=== PATIENT | male | born 1990 | race Caucasian/White ===

== ENCOUNTER 2017-07-03 01:18 | Emergency (ER) | payer SELFPAY ==
[~2017-07-03] VITALS: Ht 188 cm; Wt 104.3 kg
[2017-07-03] MEDS ORDERED: LIDOCAINE 2% 20 ML (XYLOCAINE) VIAL ONE (01:23)
[2017-07-03] MEDS ORDERED: BACTRIM (01:34)
[2017-07-03] MEDS ORDERED: LIDOCAINE 2% 20 ML (XYLOCAINE) VIAL INJ ONE (01:45)
[2017-07-03] MEDS ORDERED: SULF1TAB35 PO (01:56)
--- NOTE | 2017-07-03 01:57 | ED Integumentary General ---
General Chief Complaint: Skin/Wound Problems Stated Complaint: SWOLLEN KNOT ON THROAT Nursing Triage Note: PT TO ED 6 W/ C/O ABSCESS TO LT SIDE OF NECK ONSET X1 WK. REPORTS HE WAS SEEN BY [facility] X2 DAYS AGO ET PRESCRIBED BACTRIM BUT DENIES IMPROVEMENT. REPORTS SITE IS "WORSE" SINCE TREATMENT. NO OTHER C/O VOICED Source: patient History of Present Illness Time seen by provider: 01:24 Initial Comments PT STATES HE HAS HAD ABSCESS TO LEFT NECK X 1 WEEK STARTED OUT A PIMPLE AND GIRLFRIEND HAS BEEN SQUEEZING AND POKING IT AND HAS CONTINUED TO GET BIGGER AND MORE PAINFUL SEEN AT [facility] BY SOLDERER FURNACE YOUNG STRONG ON Thursday07/01/17 AND GIVEN RX FOR BACTRIM, DID NOT ATTEMPT TO DO I&D--STATES IS GETTING WORSE NO DRAINAGE NO FEVER NO DIFFICULTY SWALLOWING HAS NOT TAKEN ANYTHING FOR PAIN NO PRIOR HISTORY OF SIMILAR , BUT GIRLFRIEND HAS HAD ABSCESSES BEFORE PCP [facility] Allergies and Home Medications Allergies Coded Allergies: No Known Allergies (Unverified Allergy, Mild, 02/24/10) Home Medications Sulfamethoxazole/Trimethoprim 1 Each Tablet, 2 EACH PO BID, #20 Prescribed by: MANUELA MORENO on 07/03/17 0156 [Bactrim] , (Reported) Constitutional: no symptoms reported EENTM: see HPI Respiratory: no symptoms reported Cardiovascular: no symptoms reported Skin: see HPI Psychiatric/Neurological: No Symptoms Reported Past Eatfigg-Mktyjw-Bddyme Hx Patient Social History Alcohol Use: Denies Use Recreational Drug Use: No Smoking Status: Current Everyday Smoker (1/2-1 PPD) Type Used: Cigarettes Recent Foreign Travel: No Contact w/Someone Who Travel: No Recent Infectious Disease Expo: No Surgeries HX Surgeries: Yes (TOE SURGERY) Respiratory Hx Respiratory Disorders: No Cardiovascular Hx Cardiac Disorders: No Neurological Hx Neurological Disorders: No Genitourinary Hx Genitourinary Disorders: No Gastrointestinal Hx Gastrointestinal Disorders: No Musculoskeletal Hx Musculoskeletal Disorders: No Endocrine Hx Endocrine Disorders: No HEENT HX ENT Disorders: No Cancer Hx Cancer: No Psychosocial Hx Psychiatric Problems: No Integumentary HX Skin/Integumentary Disorder: No Blood Transfusions Hx Blood Disorders: No Physical Exam Vital Signs Vital Sign - Last 12Hours 07/03/17 01:23 Temp 98.8 Pulse 103 Resp 20 B/P (MAP) 146/87 O2 Delivery Room Air Capillary Refill : Less Than 3 Seconds General Appearance: WD/WN, no apparent distress HEENT: normal ENT inspection Neck: other (5 CM POINTING ABSCESS TO LEFT NECK. ) Cardiovascular: regular rate, rhythm Respiratory: normal breath sounds Neurologic/Psychiatric: club director II-XII nml as tested, no motor/sensory deficits, alert, oriented x 3 Skin: normal color, warm/dry, other ( ABOVE) I&D : Site: LEFT NECK Blade Size: 11 I & D Procedure: betadine prep, sterile drapes applied, sterile dressing applied, gauze wick placed, Wound Packing Packing/Drain: Idoform 1/4 Progress AREA CLEANSED WITH BETADINE AND BETASEPT STERILE DRAPES APPLIED INJECTED WITH 2% LIDOCAINE PLAIN INCISED WITH #11 BLADE PROFUSE AMOUNTS OF PURULENT DRAINAGE EXPELLED CULTURE OBTAINED PROBED TO BREAK UP LOCULATIONS PACKED WITH 1/4" IODOFORM GAUZE STERILE DRESSING APPLIED PT TOLERATED WELL. Progress/Results/Core Measures Results/Orders My Orders Orders - MANUELA MORENO DO Lidocaine 2% Injection 20 Ml (Xylocaine (07/03/17 01:23) Lidocaine 2% Injection 20 Ml (Xylocaine (07/03/17 01:45) Clindamycin Injection (Cleocin Injection (07/03/17 02:00) Wound Culture (07/03/17 01:52) Medications Given in ED Current Medications Medications Dose Ordered Sig/Brandon Route Start Time Stop Time Status Last Admin Dose Admin Clindamycin Phosphate 600 mg ONCE ONCE IM 07/03/17 02:00 07/03/17 02:01 DC 07/03/17 02:03 600 MG Lidocaine HCl 20 ml ONCE ONCE INJ 07/03/17 01:45 07/03/17 01:47 DC 07/03/17 01:34 20 ML Vital Signs/I&O Vital Sign - Last 12Hours 07/03/17 01:23 Temp 98.8 Pulse 103 Resp 20 B/P (MAP) 146/87 O2 Delivery Room Air Blood Pressure Mean: 106 Departure Impression Impression: Primary Impression: abscess left neck Additional Impression: suspected MRSA Disposition: HOME, SELF-CARE Condition: Stable Departure-Patient Inst. Referrals: NO,LOCAL PHYSICIAN (PCP) Primary Care Physician [facility] Patient Instructions: Abscess Incision and Drainage (DC), MRSA (DC) Add. Discharge Instructions: LEAVE DRESSING IN PLACE, AND DO NOT REMOVE PACKING TYLENOL AND MOTRIN NEEDED FOR PAIN DOUBLE YOUR DOSE OF BACTRIM TO 2 PILLS TWICE A DAY FOLLOW UP WITH [facility] IN 2 DAYS FOR FURTHER CARE All discharge instructions reviewed with patient and/or family. Voiced understanding. Scripts Sulfamethoxazole/Trimethoprim (Bactrim Ds Tablet) 1 Each Tablet 2 EACH PO BID, #20 TAB Prov: MANUELA MORENO DO 07/03/17 Work/School Note: Work Release Form Date Seen in the Emergency Department: Jul 03, 2017 Return to Work: Jul 05, 2017 MANUELA MORENO DO Jul 03, 2017 01:57
[2017-07-03] MEDS ORDERED: CLINDAMYCIN 600 MG/4ML (CLEOCIN) VIAL IM ONE (02:00)
[2017-07-03 02:27] VITALS: BP 124/78
== END 2017-07-03 02:27 | disposition home or self-care (01) ==
LOC: EDUNIT# 01:18 → ER 01:22
DX: L02.11 Cutaneous abscess of neck (principal); F17.210 Nicotine dependence, cigarettes, uncomplicated
CPT/HCPCS: 87070; 87186; 87205; 99284

== ENCOUNTER 2017-10-07 00:01 | Emergency (ER) | payer SELFPAY ==
[~2017-10-07] VITALS: Ht 185.4 cm; Wt 105.2 kg
[~2017-10-07 00:01] MED LIST: BACTRIM; SULF1TAB35 PO
[2017-10-07] MEDS ORDERED: SULF1TAB35 PO (00:44)
[2017-10-07] MEDS ORDERED: LIDOCAINE 1% INJ 20 ML (XYLOCAINE) VIAL INJ ONE (00:45)
--- NOTE | 2017-10-07 00:45 | ED Integumentary General ---
General Chief Complaint: Skin/Wound Problems Stated Complaint: ABSCESS ON FACE Nursing Triage Note: PT TO ED 8 W/ C/O POSS ABSCESS ONSET X2-3WKS. AREA SLIGHTLY RED, CENTER APPEARS TO BE SCABBED OVER. Source: patient, other Exam Limitations: no limitations History of Present Illness Time seen by provider: 00:35 Initial Comments Patient has ER by private conveyance with chief complaint that for the past 3 weeks she's had a nodule on the right side of his neck that he thought was an ingrown hair that has been slowly growing. He is having pain, small amount of caseous thick drainage this evening but no fevers, chills or rash. He had one on the other side of his neck a few months ago that had to be drained in the ER. He still smokes a pack a day. No other history of surgery to his neck or head. He's having some pain around his right ear but no trouble hearing. He does have a toothache is been going on for several months but is not related to this pain he says. Allergies and Home Medications Allergies Coded Allergies: No Known Allergies (Unverified Allergy, Mild, 02/24/10) Home Medications Sulfamethoxazole/Trimethoprim 1 Each Tablet, 2 EACH PO BID, #20 Prescribed by: MANUELA MORENO on 07/03/17 0156 Sulfamethoxazole/Trimethoprim 1 Each Tablet, 1 EACH PO BID for 5 Days, #10 Ref 0 Prescribed by: VERITO HASTINGS on 10/07/17 0044 [Bactrim] , (Reported) Constitutional: No chills, No fever, No malaise EENTM: ear pain (right), No ear discharge, No hearing loss Respiratory: No cough, No short of breath Cardiovascular: No chest pain, No Hx of Intervention, No vascular heart diseas Gastrointestinal: No diarrhea, No nausea Skin: see HPI, No pruritus, No rash Past Iegsnvn-Xdtuwu-Zempab Hx Patient Social History Alcohol Use: Denies Use Recreational Drug Use: No Smoking Status: Current Everyday Smoker Type Used: Cigarettes Recent Foreign Travel: No Contact w/Someone Who Travel: No Recent Infectious Disease Expo: No Recent Hopitalizations: No Physical Abuse: No Sexual Abuse: No Mistreated: No Fear: No Surgeries History of Surgeries: No Respiratory History of Respiratory Disorde: No Cardiovascular History of Cardiac Disorders: No Neurological History of Neurological Disord: No Gastrointestinal History of Gastrointestinal Di: No Musculoskeletal History of Musculoskeletal Dis: No Endocrine History of Endocrine Disorders: No Cancer History of Cancer: No Psychosocial History of Psychiatric Problem: No Suicide Risk Score: 0 Integumentary History of Skin or Integumenta: No Blood Transfusions History of Blood Disorders: No Physical Exam Vital Signs Vital Sign - Last 12Hours 10/07/17 00:19 Temp 98.7 Pulse 88 Resp 20 B/P (MAP) 140/76 Pulse Ox 97 O2 Delivery Room Air Capillary Refill : Less Than 3 Seconds General Appearance: WD/WN, no apparent distress HEENT: PERRL/EOMI, pharynx normal, TM abnormal (R) (mild erythema without bulging or mucoid effusion.) Neck: non-tender, full range of motion, other (small palpable nodule with mild amount of fluctuance under it on the right anterior neck just below the angle of the jaw. 2 cm x 1 cm.) Cardiovascular: normal peripheral pulses, regular rate, rhythm Respiratory: no respiratory distress, no accessory muscle use Neurologic/Psychiatric: alert, oriented x 3 Skin: other (2 x 1 cm ovoid nodule with small amount of urine drainage in the morejon line at the angle of the right jaw.) I&D : Site: right neck at the angle of the jaw Blade Size: 11 I & D Procedure: betadine prep (chlorhexidine) Progress Patient was infiltrated with 2 cc of 1% lidocaine without epinephrine and a ring block fashion and when he was ascertained to be numb a 11 blade scalpel was used in a cross jones fashion to open up the ingrown hair and abscess area. A small amount 1-2 cc of thick caseous debris was expectorated and the wound was probed with a sterile Q-tip to break up any loculations. The patient tolerated the procedure very well. Progress/Results/Core Measures Results/Orders My Orders Orders - VERITO HASTINGS Lidocaine 1% Injection (Xylocaine 1% Inj (10/07/17 00:45) Medications Given in ED Current Medications Medications Dose Ordered Sig/Brandon Route Start Time Stop Time Status Last Admin Dose Admin Lidocaine HCl 20 ml ONCE ONCE INJ 10/07/17 00:45 10/07/17 00:46 DC 10/07/17 00:50 20 ML Vital Signs/I&O Vital Sign - Last 12Hours 10/07/17 00:19 Temp 98.7 Pulse 88 Resp 20 B/P (MAP) 140/76 Pulse Ox 97 O2 Delivery Room Air Blood Pressure Mean: 97 Departure Impression Impression: Primary Impression: Ingrown hair Disposition: HOME, SELF-CARE Condition: Improved Departure-Patient Inst. Decision time for Depature: 01:24 Referrals: NO,LOCAL PHYSICIAN (PCP/Family) Primary Care Physician Patient Instructions: Wound Incision and Drainage (DC) Add. Discharge Instructions: Keep the area clean with soap and water twice a day and a loose dressing. Take the antibiotics to completion one tablet twice a day. All discharge instructions reviewed with patient and/or family. Voiced understanding. Scripts Sulfamethoxazole/Trimethoprim (Bactrim Ds Tablet) 1 Each Tablet 1 EACH PO BID for 5 Days, #10 TAB 0 Refills Prov: VERITO HASTINGS 10/07/17 Copy Copies To 1: CHUCK HOPKINS TITUS J Oct 07, 2017 00:44
[2017-10-07 01:26] VITALS: BP 131/72
== END 2017-10-07 01:26 | disposition home or self-care (01) ==
LOC: EDUNIT# 00:01 → ER 00:04
DX: L73.1 Pseudofolliculitis barbae (principal); F17.210 Nicotine dependence, cigarettes, uncomplicated

== ENCOUNTER 2017-11-01 19:54 | Emergency (ER) | payer SELFPAY ==
[~2017-11-01] VITALS: Ht 185.4 cm; Wt 106.6 kg
[2017-11-01] MEDS ORDERED: RX-ONDANSETRON 4 MG ODT (ZOFRAN) PPK #4 PO STA (21:04)
[2017-11-01] MEDS ORDERED: ONDA4TAB11 PO (21:10)
--- NOTE | 2017-11-01 21:10 | ED GI ---
General Chief Complaint: Abdominal/GI Problems Stated Complaint: NOT KEEPING FOOD DOWN Nursing Triage Note: N/V/D X3 DAYS Sepsis Screen: No Definite Risk Source of Information: Patient Exam Limitations: No Limitations History of Present Illness Time Seen By Provider: 20:59 Initial Comments 4 days ago night this started with some nausea and loose stools. Thursday has nausea and got more severe where he was vomiting nonbloody food particles and anything that he drank. His diarrhea was loose watery without blood in it. He took some Imodium but Throwing it up. He missed work Thursday and Thursday and tonight he feels this is been going on for 4 days he had to be seen. He's had no fevers, chills, cough, chest pain, shortness of breath, rash, history of surgeries to the abdomen, history of trauma. No sick contacts or recent travel, camping or drinking from unsafe water sources. His diarrhea still has water in it and is not responding much to the Pepto or Imodium. He thinks is because his been throwing it up shortly after taking it. No history of irritable bowel or inflammatory bowel disease. He says Thursday, 3 days ago he passed a kidney stone. He has a history of kidney stones he is no longer having any hematuria, dysuria or discharge. No flank pain. Allergies and Home Medications Allergies Coded Allergies: No Known Allergies (Unverified Allergy, Mild, 02/24/10) Home Medications No Active Prescriptions or Reported Meds Review of Systems Constitutional: No chills, No fever, No malaise Respiratory: Denies Cough, Denies Shortness of Air Cardiovascular: Denies Chest Pain, Denies Palpitations, Denies Syncope Gastrointestinal: Denies Abdomen Distended, Denies Abdominal Pain, Denies Blood Streaked Stools, Denies Constipated, Diarrhea, Denies Difficulty Swallowing, Nausea, Poor Fluid Intake, Denies Rectal Bleeding, Vomiting Genitourinary: Denies Burning, Denies Discharge Musculoskeletal: No back pain, No joint pain Past Nxyvlac-Onlhjh-Ytykcq Hx Patient Social History Alcohol Use: Denies Use Recreational Drug Use: No Smoking Status: Current Everyday Smoker Type Used: Cigarettes Recent Foreign Travel: No Contact w/Someone Who Travel: No Recent Infectious Disease Expo: No Recent Hopitalizations: No Immunizations Up To Date Tetanus Booster (TDap): Unknown Seasonal Allergies Seasonal Allergies: No Surgeries History of Surgeries: No Respiratory History of Respiratory Disorde: No Cardiovascular History of Cardiac Disorders: No Neurological History of Neurological Disord: No Genitourinary History of Genitourinary Disor: No Gastrointestinal History of Gastrointestinal Di: No Musculoskeletal History of Musculoskeletal Dis: No Endocrine History of Endocrine Disorders: No HEENT History of HEENT Disorders: No Cancer History of Cancer: No Psychosocial History of Psychiatric Problem: No Integumentary History of Skin or Integumenta: No Blood Transfusions History of Blood Disorders: No Physical Exam Vital Signs VS - Last 72 Hours, by Label 11/01/17 20:49 Temp 97.3 Pulse 70 Resp 16 B/P (MAP) 122/72 (89) Pulse Ox 99 O2 Delivery Room Air Capillary Refill : Less Than 3 Seconds General Appearance: WD/WN, no apparent distress HEENT: PERRL/EOMI, pharynx normal (oral mucosa is moist) Neck: non-tender, normal inspection Respiratory: chest non-tender, lungs clear, normal breath sounds Cardiovascular: normal peripheral pulses, regular rate, rhythm, no edema Peripheral Pulses: 2+ Dorsalis Pedis (R), 2+ Left Dors-Pedis (L) Gastrointestinal: normal bowel sounds, non tender, soft, no organomegaly, no pulsatile mass, No mass Extremities: normal range of motion, non-tender, normal inspection, no pedal edema, no calf tenderness, normal capillary refill Neurologic/Psychiatric: alert, normal mood/affect, oriented x 3 Skin: normal color, warm/dry Progress/Results/Core Measures Results/Orders Vital Signs/I&O Vital Sign - Last 12Hours 11/01/17 20:49 Temp 97.3 Pulse 70 Resp 16 B/P (MAP) 122/72 (89) Pulse Ox 99 O2 Delivery Room Air Blood Pressure Mean: 89 Departure Impression Impression: Primary Impression: Gastroenteritis and colitis, viral Disposition: 01 HOME, SELF-CARE Condition: Stable Departure-Patient Inst. Decision time for Depature: 21:08 Referrals: NO,LOCAL PHYSICIAN (PCP/Family) Primary Care Physician Patient Instructions: Viral Gastroenteritis, Adult (DC) Add. Discharge Instructions: Make sure you're drinking plenty of fluids faster than you're losing it. Get something with some salt in it like Gatorade. Use the Zofran 1 tablet every 6 hours as needed for nausea or vomiting. Allowed to dissolve under your tongue and absorbed your mouth. After your nausea is under control you may then take 2 tablets of Imodium initially and then one tablet every 4 hours that you're having watery diarrhea. If your diarrhea goes on for longer than 10 days or you start having blood in the diarrhea or fever above 102.5 or severe abdominal pain you should return to the ER or your primary care physician for evaluation. All discharge instructions reviewed with patient and/or family. Voiced understanding. Scripts Ondansetron (Ondansetron Odt) 4 Mg Tab.rapdis 4 MG PO Q6H Y for NAUSEA/VOMITING, #8 TAB 0 Refills Prov: VERITO HASTINGS 11/01/17 Work/School Note: Work Release Form Date Seen in the Emergency Department: Nov 01, 2017 Return to Work: Nov 02, 2017 Restrictions: No Restrictions Other Restrictions Listed Below: Please excuse him from Thursday and Thursday night for the same malady. VERITO HASTINGS Nov 01, 2017 21:10
[2017-11-01 21:15] VITALS: BP 122/72
== END 2017-11-01 21:14 | disposition home or self-care (01) ==
LOC: EDUNIT# 19:54 → ER 19:56
DX: A08.4 Viral intestinal infection, unspecified (principal); F17.210 Nicotine dependence, cigarettes, uncomplicated; Z87.442 Personal history of urinary calculi
CPT/HCPCS: 99283

== ENCOUNTER 2021-01-07 16:31 | Emergency (ER) | payer OTHER ==
[~2021-01-07] VITALS: Ht 185 cm; Wt 113.3 kg
[~2021-01-07 16:31] MED LIST changes: +ONDA4TAB11 PO
[2021-01-07 16:34] VITALS: BP 174/109
[2021-01-07] MEDS ORDERED: LIDOCAINE 1% INJ 20 ML 20 ML VIAL INJ ONE (16:45)
[2021-01-07] MEDS ORDERED: DOXY100T2 PO (16:51)
[2021-01-07] MEDS ORDERED: ACHD5005 PO (16:51)
--- NOTE | 2021-01-07 16:52 | ED Integumentary General ---
General Stated Complaint: CYST ON BACK OF HEAD Source: patient Exam Limitations: no limitations History of Present Illness Date Seen by Provider: Jan 07, 2021 Time Seen by Provider: 16:49 Initial Comments Cyst to the back of his neck for about 2 to 3 days. No fevers or chills. Timing/Duration: getting worse Severity: moderate Possible Cause: no cause identified Associated Symptoms: denies symptoms Allergies and Home Medications Allergies Coded Allergies: No Known Allergies (Unverified Allergy, Mild, 02/24/10) Home Medications Ondansetron 4 Mg Tab.rapdis, 4 MG PO Q6H PRN for NAUSEA/VOMITING Prescribed by: VERITO HASTINGS on 11/01/170 Patient Home Medication List Home Medication List Reviewed: Yes Review of Systems Review of Systems Constitutional: see HPI EENTM: see HPI Respiratory: no symptoms reported Cardiovascular: no symptoms reported Genitourinary: no symptoms reported Musculoskeletal: no symptoms reported Skin: see HPI Psychiatric/Neurological: No Symptoms Reported Endocrine: No Symptoms Reported Past Hiddtgp-Nhdctj-Uaopci Hx Patient Social History Type Used: Cigarettes Recent Hopitalizations: No Immunizations Up To Date Tetanus Booster (TDap): Unknown Seasonal Allergies Seasonal Allergies: No Past Medical History Surgeries: No Respiratory: No Cardiac: No Neurological: No Genitourinary: No Gastrointestinal: No Musculoskeletal: No Endocrine: No HEENT: No Cancer: No Psychosocial: No Integumentary: No Blood Disorders: No Physical Exam Vital Signs Capillary Refill : General Appearance: WD/WN, no apparent distress HEENT: PERRL/EOMI, normal ENT inspection, TMs normal, other (Left occipital induration at the nape of the neck, several pustules around this area. Overlying the largest area of induration and a small incision was made after anesthetizing with 1 mL of lidocaine without epinephrine. Bloody material was expressed. Culture collected and sent to lab. Covered with gauze.) Neck: non-tender, full range of motion Gastrointestinal: normal bowel sounds, non tender Neurologic/Psychiatric: alert, normal mood/affect, oriented x 3 Skin: normal color, warm/dry Skin Problem Character: abscess Progress/Results/Core Measures Results/Orders My Orders Orders - BAKARI SANDOVAL APRN Wound Culture (01/07/21 16:38) Lidocaine 1% Inj 20 Ml (Xylocaine 1% Inj (01/07/21 16:45) Departure Impression Primary Impression: Abscess of neck Additional Impression: Folliculitis Disposition: 01 HOME, SELF-CARE Condition: Stable Departure-Patient Inst. Decision time for Depature: 16:50 Referrals: [facility] (PCP/Family) Primary Care Physician Patient Instructions: Folliculitis, Abscess Incision and Drainage (DC) Add. Discharge Instructions: 1. Return to ER for any concerns 2. Follow-up with your doctor next week. Warm compresses to the area. Pain medication and antibiotics as directed. Scripts Hydrocodone/Acetaminophen (Hydrocodone-Acetamin 5-325 mg) 1 Each Tablet 1 TAB PO Q4H PRN for PAIN-MODERATE (5-7), #10 TAB Prov: BAKARI SANDOVAL APRN 01/07/21 Doxycycline Hyclate (Doxycycline Hyclate) 100 Mg Tablet 100 MG PO BID, #20 TAB 0 Refills Prov: BAKARI SANDOVAL APRN 01/07/21 BAKARI SANDOVAL APRN Jan 07, 2021 16:52
== END 2021-01-07 17:06 | disposition home or self-care (01) ==
LOC: EDUNIT# 16:31 → ER 16:33
DX: L02.11 Cutaneous abscess of neck (principal); L73.9 Follicular disorder, unspecified
CPT/HCPCS: 10060; 87070; 87205

== ENCOUNTER 2022-03-08 20:19 | Emergency (ER) | payer SELFPAY ==
[~2022-03-08 20:19] MED LIST changes: +ACHD5005 PO; +DOXY100T2 PO; -SULF1TAB35 PO; +SULF1TAB38 PO
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
[2022-03-08] MEDS ORDERED: ORPHENADRINE 60 MG/2 ML (NORFLEX) AMP (ED ONLY) IM ONE (21:15)
[2022-03-08] MEDS ORDERED: KETOROLAC 60 MG/2 ML VIAL IM ONE (21:15)
[2022-03-08 22:13] VITALS: BP 138/96
== END 2022-03-08 22:13 | disposition home or self-care (01) ==
LOC: EDUNIT# 20:19 → ER 20:20
DX: M54.50 Low back pain, unspecified (principal); F17.210 Nicotine dependence, cigarettes, uncomplicated
CPT/HCPCS: 99284